=== PATIENT | female | born 1990 | race Caucasian/White ===

== ENCOUNTER 2024-02-06 19:53 | Emergency (ER) | payer BC, OTHER, SELFPAY ==
[2024-02-06] MEDS ORDERED: Acetaminophen 500 MG TAB ONE (21:29)
[2024-02-06] MEDS ORDERED: Cephalexin 250 MG CAP ONE (21:29)
[2024-02-06] MEDS ORDERED: Bacitracin 1 PK ONE (22:21)
== END 2024-02-06 22:53 | disposition home or self-care (01) ==
LOC: CSHERS 19:53
DX: S61.234A Puncture wound without foreign body of right ring finger without damage to nail, initial encounter (principal); W29.8XXA Contact with other powered hand tools and household machinery, initial encounter

== ENCOUNTER 2024-06-02 12:39 | Emergency (ER) | payer BC ==
[2024-06-02] MEDS ORDERED: Acetaminophen 500 MG TAB ONE (13:22)
== END 2024-06-02 13:59 | disposition home or self-care (01) ==
LOC: CSHERS 12:39
DX: S91.114A Laceration without foreign body of right lesser toe(s) without damage to nail, initial encounter (principal); Z88.0 Allergy status to penicillin; W20.8XXA Other cause of strike by thrown, projected or falling object, initial encounter
CPT/HCPCS: 99283

== ENCOUNTER 2024-06-14 20:26 | Emergency (ER) | payer BC ==
[2024-06-14] MEDS ORDERED: Acetaminophen 500 MG TAB ONE (20:42)
== END 2024-06-14 21:42 | disposition home or self-care (01) ==
LOC: CSHERS 20:26
DX: S93.504A Unspecified sprain of right lesser toe(s), initial encounter (principal); S90.111A Contusion of right great toe without damage to nail, initial encounter; S90.121A Contusion of right lesser toe(s) without damage to nail, initial encounter; Z55.6 Problems related to health literacy; X58.XXXA Exposure to other specified factors, initial encounter
CPT/HCPCS: 99283

== ENCOUNTER 2025-06-15 22:37 | Emergency (ER) | payer SELFPAY ==
[2025-06-15] MEDS ORDERED: Dexamethasone 10 MG/ML VIAL ONE (23:11)
== END 2025-06-16 00:15 | disposition home or self-care (01) ==
LOC: CSHERS 22:37
DX: S13.9XXA Sprain of joints and ligaments of unspecified parts of neck, initial encounter (principal); X50.0XXA Overexertion from strenuous movement or load, initial encounter
CPT/HCPCS: 72125; 96372; J1100